=== PATIENT | female | born 1965 | race African-American/Black ===

== ENCOUNTER 2021-05-12 18:18 | Emergency (ER) | payer OTHER ==
[~2021-05-12] VITALS: Ht 162.6 cm; Wt 63.0 kg
[2021-05-12] MEDS ORDERED: METFORMIN HCL500 M3 PO (18:44)
[2021-05-12] MEDS ORDERED: LISINOPRIL20 MG PO (18:44)
[2021-05-12] MEDS ORDERED: APAP W/CODEINE1 TA2 PO (20:03)
[2021-05-12] MEDS ORDERED: FLEXERIL PO (20:15)
[2021-05-12 20:25] VITALS: BP 158/98
== END 2021-05-12 20:25 | disposition home or self-care (01) ==
LOC: M.ERS 18:18
DX: S16.1XXA Strain of muscle, fascia and tendon at neck level, initial encounter (principal); S09.90XA Unspecified injury of head, initial encounter; R07.81 Pleurodynia; I10 Essential (primary) hypertension; E11.9 Type 2 diabetes mellitus without complications; Z79.899 Other long term (current) drug therapy; V89.2XXA Person injured in unspecified motor-vehicle accident, traffic, initial encounter; Y93.89 Activity, other specified; Y92.89 Other specified places as the place of occurrence of the external cause; Y99.8 Other external cause status

== ENCOUNTER → 2021-05-19 | Outpatient (CLI) | payer OTHER ==
[~2021-05-19] MED LIST: APAP W/CODEINE1 TA2 PO; FLEXERIL PO; LISINOPRIL20 MG PO; METFORMIN HCL500 M3 PO
== END ==
LOC: M.ULTRA 07:49
PROVIDERS: ATTEND Family Medicine
DX: E04.2 Nontoxic multinodular goiter (principal)